=== PATIENT | female | born 1960 | race Caucasian/White ===

== ENCOUNTER 2023-06-08 16:25 | Emergency (ER) | payer BC ==
[2023-06-08] MEDS ORDERED: Insulin Lispro 100 Unit/ML 3 ML KwikPen SUBCUT ONE (16:26)
[2023-06-08] MEDS ORDERED: Sodium Chloride 0.9% 10 ML Syringe FLUSH PRN (16:27)
[2023-06-08] MEDS ORDERED: Glucagon,Human Recombinant 1 MG Vial IM PRN (16:43)
[2023-06-08] MEDS ORDERED: Insulin Lispro 100 Unit/ML 3 ML KwikPen SUBCUT STA (16:43)
[2023-06-08] MEDS ORDERED: 50% Dextrose in Water 50 ML Syringe IVPUSH PRN (16:43)
[2023-06-08] MEDS ORDERED: Sodium Chloride 0.9% 1,000 ML IV SCH ×2 (16:45)
[2023-06-08 16:50] LABS: BASOPHILS PERCENT AUTO 0.4 % (0.2-1.5); EOSINOPHILS PERCENT AUTO 0.2 % (0.6-8.1); HEMATOCRIT 32.2 % (34.2-48.2); HEMOGLOBIN 10.6 g/dL (11.4-15.5); LYMPHOCYTES ABSOLUTE AUTO 0.9 x10-3/uL (1.0-4.4); LYMPHOCYTES PERCENT AUTO 9.2 % (18.4-52.1); MEAN CORPUSCULAR HEMOGLOBIN 29.8 pg (23.9-33.9); MEAN CORPUSCULAR HGB CONC 32.9 g/dL (31.9-34.8); MEAN CORPUSCULAR VOLUME 90.5 fL (76.7-100.5); MONOCYTES ABSOLUTE AUTO 0.6 x10-3/uL (0.3-1.0); MONOCYTES PERCENT AUTO 5.9 % (4.4-15.7); NEUTROPHILS ABSOLUTE AUTO 8.2 x10-3/uL (1.5-6.3); NEUTROPHILS PERCENT AUTO 84.3 % (30.8-76.2); PLATELET COUNT,PLT 302 x10(3)uL (151-488); RED BLOOD CELL COUNT 3.55 x10(6)uL (3.60-5.20); RED CELL DISTRIBUTION WIDTH 15.4 % (12.3-16.5); WHITE BLOOD CELL COUNT,WBC 9.7 x10-3/uL (3.0-10.3)
[2023-06-08 16:52] LABS: BLOOD UREA NITROGEN,BUN 22 mg/dL (7-18); BUN/CREATININE RATIO 13.8 (9-20); CALCIUM 8.8 mg/dL (8.6-10.2); CARBON DIOXIDE,CO2 26 mmol/L (21-32); CHLORIDE,CL 99 mmol/L (100-110); CREATININE 1.6 mg/dL (0.55-1.02); ESTIMATED GFR 36 mL/min (>60); GLUCOSE RANDOM 377 mg/dL (80-116); SODIUM,NA 136 mmol/L (135-145)
[2023-06-08 16:58] LABS: A/G RATIO 0.7; ALANINE AMINOTRANSFERASE,ALT 22 U/L (12-36); ALBUMIN 2.8 g/dL (3.2-4.6); ALKALINE PHOSPHATASE 130 IU/L (56-112); ASPARTATE AMNIOTRANSFERASE,AST 8 IU/L (5-25); BILIRUBIN TOTAL 0.2 mg/dL (0.1-1.3); PROTEIN TOTAL,TP 7.1 g/dL (6.0-8.0)
[2023-06-08 17:06] LABS: HEMOGLOBIN A1C 7.5 % (<5.7)
[2023-06-08 17:45] LABS: INFLUENZA A NAA NEGATIVE (NEGATIVE); INFLUENZA B NAA NEGATIVE (NEGATIVE)
[2023-06-08 17:46] LABS: CORONAVIRUS COVID-19 NAA NEGATIVE (NEGATIVE)
[2023-06-08 18:59] LABS: BILIRUBIN,URINE NEGATIVE (NEGATIVE); GLUCOSE,URINE >1000 mg/dL (NORMAL); KETONES,URINE NEGATIVE (NEGATIVE); LEUKOCYTE ESTERASE,URINE LARGE (NEGATIVE); NITRITE,URINE NEGATIVE (NEGATIVE); OCCULT BLOOD,URINE LARGE (NEGATIVE); PROTEIN,URINE 100 mg/dL (NEGATIVE); UROBILINOGEN,URINE NORMAL (NEGATIVE)
[2023-06-08 19:02] LABS: APPEARANCE,URINE CLOUDY (CLEAR); BACTERIA,URINE MANY (NS); COLOR,URINE YELLOW (YELLOW); RBC,URINE 75-100 (0-5); SQUAMOUS EPITHELIAL CELLS,UR FEW (NS,R,O); WBC,URINE 40-50 (0-5)
== END 2023-06-08 19:20 | disposition home or self-care (01) ==
LOC: FB.ED 16:25
DX: E11.65 Type 2 diabetes mellitus with hyperglycemia (principal); I12.0 Hypertensive chronic kidney disease with stage 5 chronic kidney disease or end stage renal disease; N18.9 Chronic kidney disease, unspecified; E11.40 Type 2 diabetes mellitus with diabetic neuropathy, unspecified; E03.9 Hypothyroidism, unspecified; F32.9 Major depressive disorder, single episode, unspecified; N20.0 Calculus of kidney; C55 Malignant neoplasm of uterus, part unspecified; D51.9 Vitamin B12 deficiency anemia, unspecified; C54.1 Malignant neoplasm of endometrium
CPT/HCPCS: 0240U; 36415; 71045; 80053; 81001; 82947; 83036; 84484; 85025; 87086; 93005; 93010; 96360; 96361; 99284; 99285; J1815; J7030